=== PATIENT | female | born 1970 | race Caucasian/White ===

== ENCOUNTER 2016-09-25 09:43 | Emergency (ER) | payer OTHER ==
[~2016-09-25] VITALS: Ht 162.6 cm; Wt 74.8 kg
--- NOTE | 2016-09-25 10:06 | NUR ---
CALLED TO TRIAGE, NO ANSWER
--- NOTE | 2016-09-25 11:05 | NUR ---
CALLED TO TRIAGE, PT USING BATHROOM
[2016-09-25 11:48] VITALS: BP 139/75
== END 2016-09-25 12:03 | disposition home or self-care (01) ==
LOC: ER 09:44
DX: S80.812A Abrasion, left lower leg, initial encounter (principal); J45.909 Unspecified asthma, uncomplicated; F31.9 Bipolar disorder, unspecified; F17.200 Nicotine dependence, unspecified, uncomplicated; F20.9 Schizophrenia, unspecified; Z98.890 Other specified postprocedural states; X58.XXXA Exposure to other specified factors, initial encounter; Y93.89 Activity, other specified; Y92.89 Other specified places as the place of occurrence of the external cause; Y99.8 Other external cause status
CPT/HCPCS: A4606; Z7610

== ENCOUNTER 2016-09-25 19:36 | Emergency (ER) | payer OTHER ==
[~2016-09-25] VITALS: Ht 152.4 cm; Wt 74.4 kg
[2016-09-25 19:42] VITALS: BP 119/78
== END 2016-09-25 19:52 | disposition home or self-care (01) ==
LOC: ER 19:36
DX: Z00.8 Encounter for other general examination (principal); F20.9 Schizophrenia, unspecified; J45.909 Unspecified asthma, uncomplicated; F17.200 Nicotine dependence, unspecified, uncomplicated; F31.9 Bipolar disorder, unspecified
CPT/HCPCS: 99281; A4606; Z7610; Z7502

== ENCOUNTER 2016-10-22 11:16 | Emergency (ER) | payer OTHER ==
[~2016-10-22] VITALS: Ht 152.4 cm; Wt 68.0 kg
[2016-10-22 11:29] VITALS: BP 145/84
[2016-10-22] MEDS ORDERED: SILVER SULFADIAZINE CREAM 25 GM TUBE ONE (11:49)
[2016-10-22] MEDS ORDERED: IBUPROFEN 600 MG TABLET PO ONE ×2 (11:49→12:00)
[2016-10-22] MEDS ORDERED: TDAP [DIPH/PERTUSSIS/TET] 0.5 ML VIAL IM ONE ×2 (11:49→12:00)
[2016-10-22] MEDS ORDERED: SILVER SULFADIAZINE CREAM 25 GM TUBE TP ONE (12:00)
== END 2016-10-22 12:13 | disposition home or self-care (01) ==
LOC: ER 11:18
DX: T23.211A Burn of second degree of right thumb (nail), initial encounter (principal); J45.909 Unspecified asthma, uncomplicated; F31.9 Bipolar disorder, unspecified; F20.9 Schizophrenia, unspecified; F17.200 Nicotine dependence, unspecified, uncomplicated; X19.XXXA Contact with other heat and hot substances, initial encounter; Y93.89 Activity, other specified; Y92.89 Other specified places as the place of occurrence of the external cause; Y99.9 Unspecified external cause status
CPT/HCPCS: 16020; 90471; 90715; 99284; A4606; Z7610

== ENCOUNTER 2016-10-26 20:03 | Emergency (ER) | payer OTHER ==
[~2016-10-26] VITALS: Ht 152.4 cm; Wt 72.6 kg
[2016-10-26 20:08] VITALS: BP 140/82
[2016-10-26] MEDS ORDERED: ALBUTEROL FS 2.5 MG/3 ML VIAL.NEB ONE ×2 (20:16→21:02)
[2016-10-26] MEDS ORDERED: predniSONE 20 MG TABLET PO ONE (20:30)
[2016-10-26] MEDS ORDERED: ALBUTEROL FS 2.5 MG/3 ML VIAL.NEB NEB ONE ×2 (20:30→21:00)
[2016-10-26] MEDS ORDERED: predniSONE 20 MG TABLET ONE (21:11)
== END 2016-10-26 21:20 | disposition home or self-care (01) ==
LOC: ER 20:05
DX: J45.901 Unspecified asthma with (acute) exacerbation (principal); F31.9 Bipolar disorder, unspecified; F20.9 Schizophrenia, unspecified; F17.200 Nicotine dependence, unspecified, uncomplicated
CPT/HCPCS: 94640 ×2; 99284; A4606; J7512; Z7610

== ENCOUNTER 2016-10-31 16:51 | Emergency (ER) | payer OTHER ==
[2016-10-31] MEDS ORDERED: ALBUTEROL FS 2.5 MG/3 ML VIAL.NEB ONE (17:03)
[2016-10-31] MEDS ORDERED: IPRATROPIUM NEB FS 0.5 MG/2.5 ML AMPUL.NEB ONE (17:03)
[2016-10-31] MEDS ORDERED: predniSONE 20 MG TABLET ONE (17:14)
[2016-10-31] MEDS ORDERED: ALBUTEROL FS 2.5 MG/3 ML VIAL.NEB CONTNEB ONE (17:30)
[2016-10-31] MEDS ORDERED: predniSONE 20 MG TABLET PO ONE (17:30)
[2016-10-31] MEDS ORDERED: IPRATROPIUM NEB FS 0.5 MG/2.5 ML AMPUL.NEB NEB ONE (17:30)
[2016-10-31] MEDS ORDERED: DOXYCYCLINE HYCLATE (100 MG) 100 MG TABLET ONE (18:13)
[2016-10-31] MEDS ORDERED: BENZTROPINE MESYLATE (1 MG) 1 MG TABLET ONE (18:13)
[2016-10-31] MEDS ORDERED: BENZTROPINE MESYLATE (1 MG) 1 MG TABLET PO ONE (18:30)
[2016-10-31] MEDS ORDERED: DOXYCYCLINE HYCLATE (100 MG) 100 MG TABLET PO ONE (18:30)
== END 2016-10-31 18:47 | disposition home or self-care (01) ==
LOC: ER 16:59
DX: J45.901 Unspecified asthma with (acute) exacerbation (principal); F31.9 Bipolar disorder, unspecified; F20.9 Schizophrenia, unspecified; F17.200 Nicotine dependence, unspecified, uncomplicated
CPT/HCPCS: 71010-TC; A4606; Z7610

== ENCOUNTER 2016-11-26 10:37 | Emergency (ER) | payer OTHER ==
[~2016-11-26] VITALS: Ht 152.4 cm; Wt 66.2 kg
[2016-11-26 10:42] VITALS: BP 126/81
== END 2016-11-26 11:23 | disposition home or self-care (01) ==
LOC: ER 10:39
DX: J04.0 Acute laryngitis (principal); R21 Rash and other nonspecific skin eruption; J45.909 Unspecified asthma, uncomplicated; F31.9 Bipolar disorder, unspecified; F20.9 Schizophrenia, unspecified; F17.200 Nicotine dependence, unspecified, uncomplicated; Z98.890 Other specified postprocedural states
CPT/HCPCS: A4606; Z7502; Z7610

== ENCOUNTER 2016-12-11 14:16 | Emergency (ER) | payer OTHER ==
[~2016-12-11] VITALS: Ht 157.5 cm; Wt 65.8 kg
[2016-12-11 14:24] VITALS: BP 126/81
[2016-12-11] MEDS ORDERED: SILVER SULFADIAZINE CREAM 25 GM TUBE TP ONE (14:30)
[2016-12-11] MEDS ORDERED: SILVER SULFADIAZINE CREAM 25 GM TUBE ONE (14:31)
== END 2016-12-11 14:44 | disposition home or self-care (01) ==
LOC: ER 14:18
DX: T23.211A Burn of second degree of right thumb (nail), initial encounter (principal); F17.210 Nicotine dependence, cigarettes, uncomplicated; F20.9 Schizophrenia, unspecified; J45.909 Unspecified asthma, uncomplicated; X19.XXXA Contact with other heat and hot substances, initial encounter; Y93.89 Activity, other specified; Y92.89 Other specified places as the place of occurrence of the external cause; Y99.9 Unspecified external cause status
CPT/HCPCS: A4606; Z7610

== ENCOUNTER 2016-12-21 01:14 | Emergency (ER) | payer OTHER ==
[~2016-12-21] VITALS: Ht 152.4 cm; Wt 67.1 kg
[2016-12-21 01:19] VITALS: BP 118/71
[2016-12-21] MEDS ORDERED: ACETAMINOPHEN ES 500 MG TABLET ONE (01:32)
[2016-12-21] MEDS: ACETAMINOPHEN 325 MG TABLET PO ONE (01:41)
== END 2016-12-21 02:57 | disposition home or self-care (01) ==
LOC: ER 01:18
DX: S80.12XA Contusion of left lower leg, initial encounter (principal); J45.909 Unspecified asthma, uncomplicated; F17.200 Nicotine dependence, unspecified, uncomplicated; F20.9 Schizophrenia, unspecified; W22.8XXA Striking against or struck by other objects, initial encounter; Y93.89 Activity, other specified; Y92.89 Other specified places as the place of occurrence of the external cause; Y99.9 Unspecified external cause status
CPT/HCPCS: 73564; 99284; A4606; Z7610

== ENCOUNTER 2016-12-25 19:16 | Emergency (ER) | payer OTHER ==
[~2016-12-25] VITALS: Ht 154.9 cm; Wt 61.2 kg
[2016-12-25 19:37] VITALS: BP 99/56
[2016-12-25] MEDS ORDERED: BENZTROPINE MESYLATE (1 MG) 1 MG TABLET ONE (19:54)
[2016-12-25] MEDS ORDERED: BENZTROPINE MESYLATE (1 MG) 1 MG TABLET PO ONE (20:00)
== END 2016-12-25 20:35 | disposition home or self-care (01) ==
LOC: ER 19:19
DX: F41.9 Anxiety disorder, unspecified (principal); F17.210 Nicotine dependence, cigarettes, uncomplicated; J45.909 Unspecified asthma, uncomplicated; F20.9 Schizophrenia, unspecified
CPT/HCPCS: 99284; A4606; Z7610

== ENCOUNTER 2017-01-02 20:08 | Emergency (ER) | payer OTHER ==
[~2017-01-02] VITALS: Ht 172.7 cm; Wt 70.3 kg
[2017-01-02 20:08] VITALS: BP 108/70
== END 2017-01-02 23:53 | disposition home or self-care (01) ==
LOC: ER 20:11
DX: L73.9 Follicular disorder, unspecified (principal); J45.909 Unspecified asthma, uncomplicated; F17.200 Nicotine dependence, unspecified, uncomplicated; F20.9 Schizophrenia, unspecified
CPT/HCPCS: 99281; A4606; Z7610; Z7502

== ENCOUNTER 2017-01-20 12:32 | Emergency (ER) | payer OTHER ==
[~2017-01-20] VITALS: Ht 152.4 cm; Wt 52.2 kg
--- NOTE | 2017-01-20 12:33 | NUR ---
CALLED FOR TRIAGE, NO RESPONSE
[2017-01-20 12:47] VITALS: BP 122/68
--- NOTE | 2017-01-20 12:47 | NUR ---
CALLED FOR TRIAGE AND NO ANSWER
[2017-01-20] MEDS ORDERED: ACETAMINOPHEN 325 MG TABLET PO ONE (14:00)
[2017-01-20] MEDS ORDERED: ACETAMINOPHEN ES 500 MG TABLET ONE (14:01)
== END 2017-01-20 14:21 | disposition home or self-care (01) ==
LOC: ER 12:34
DX: S83.91XA Sprain of unspecified site of right knee, initial encounter (principal); F17.200 Nicotine dependence, unspecified, uncomplicated; F20.9 Schizophrenia, unspecified; J45.909 Unspecified asthma, uncomplicated; W22.8XXA Striking against or struck by other objects, initial encounter; Y93.89 Activity, other specified; Y92.89 Other specified places as the place of occurrence of the external cause; Y99.9 Unspecified external cause status
CPT/HCPCS: 73564; 99284; A4606; Z7610

== ENCOUNTER 2017-02-06 13:55 | Emergency (ER) | payer OTHER ==
--- NOTE | 2017-02-06 13:55 | NUR ---
called for triage, no answer
--- NOTE | 2017-02-06 14:29 | NUR ---
called for triage, no answer
--- NOTE | 2017-02-06 14:33 | NUR ---
CALLED PT TO TRIAGE ROOM x 3 3 TIME, PT IS NOT PHYSICALLY PRESENT IN ED WAITING AREA. WILL TRY GAIN LATER.
== END 2017-02-06 14:43 | disposition left against medical advice (07) ==
LOC: EDUNIT# 13:55 → ER 13:57
DX: Z53.21 Procedure and treatment not carried out due to patient leaving prior to being seen by health care provider (principal)

== ENCOUNTER 2017-03-01 20:14 | Emergency (ER) | payer OTHER ==
[~2017-03-01] VITALS: Ht 152.4 cm; Wt 81.6 kg
[2017-03-01 20:16] VITALS: BP 166/67
[2017-03-01] MEDS ORDERED: BACI/NEOM/POLY B OINT PKT 1 UDPKT PACKET TP ONE (20:30)
== END 2017-03-01 20:33 | disposition home or self-care (01) ==
LOC: ER 20:18
DX: S01.81XA Laceration without foreign body of other part of head, initial encounter (principal); S00.212A Abrasion of left eyelid and periocular area, initial encounter; J45.909 Unspecified asthma, uncomplicated; F17.200 Nicotine dependence, unspecified, uncomplicated; Z59.0 Homelessness; W01.0XXA Fall on same level from slipping, tripping and stumbling without subsequent striking against object, initial encounter; Y92.89 Other specified places as the place of occurrence of the external cause; Y93.89 Activity, other specified; Y99.8 Other external cause status; F20.9 Schizophrenia, unspecified
CPT/HCPCS: A4606; Z7502; Z7610

== ENCOUNTER 2017-11-22 15:32 | Emergency (ER) | payer OTHER ==
[~2017-11-22] VITALS: Ht 152.4 cm; Wt 47.6 kg
--- NOTE | 2017-11-22 15:55 | NUR ---
PATIENT IS NOT IN ED WAITING ROOM. UNABLE TO TRIAGE PATIENT. WILL TRY AGAIN LATER.
[2017-11-22 15:58] VITALS: BP 152/98
[2017-11-22 16:56] LABS: APPEARANCE,URINE SL CLOUDY (CLEAR); BILIRUBIN,URINE NEGATIVE (NEGATIVE); BLOOD, URINE NEGATIVE Ery/uL (NEGATIVE); COLOR,URINE YELLOW (YELLOW); KETONES,URINE TRACE (NEGATIVE); LEUKOCYTE ESTERASE ,URINE 1+ (NEGATIVE); NITRITE, URINE POSITIVE (NEGATIVE); PH,URINE 5.5 (5.0-8.0); PROTEIN,URINE TRACE mg/dl (NEGATIVE); UGLUCOSE NEGATIVE (NEGATIVE); UROBILINOGEN,URINE 0.2 EU/dL (0.2)
--- NOTE | 2017-11-22 17:02 | NUR ---
Patient eloped from facility. ER MARIAH vivar notified. Pt was accompnaied by a friend. pt ambulated with steady gait out of ER.
[2017-11-22 17:28] LABS: BACTERIA,URINE Many /HPF (None Seen); RBC,URINE 0-2 /HPF (0-2); SQUAMOUS EPITHELIAL CELL,UR Few /HPF (None Seen)
== END 2017-11-22 17:09 | disposition left against medical advice (07) ==
LOC: ER 15:33
DX: F20.9 Schizophrenia, unspecified (principal); N39.0 Urinary tract infection, site not specified; J45.909 Unspecified asthma, uncomplicated; F17.200 Nicotine dependence, unspecified, uncomplicated; Z32.02 Encounter for pregnancy test, result negative; K13.0 Diseases of lips; Z59.0 Homelessness; Z98.890 Other specified postprocedural states
CPT/HCPCS: 36415; 80074; 81000-TC; 84703-TC; 87086-TC; 87186-TC; 87491; 87591; A4606; Z7610

== ENCOUNTER 2018-01-11 17:06 | Emergency (ER) | payer OTHER ==
[~2018-01-11] VITALS: Ht 162.6 cm; Wt 64.0 kg
[2018-01-11 17:29] VITALS: BP 136/97
== END 2018-01-11 18:18 | disposition home or self-care (01) ==
LOC: ER 17:12
DX: Z13.89 Encounter for screening for other disorder (principal); H92.11 Otorrhea, right ear; J45.909 Unspecified asthma, uncomplicated; F20.9 Schizophrenia, unspecified; F17.200 Nicotine dependence, unspecified, uncomplicated; Z59.0 Homelessness
CPT/HCPCS: A4606; Z7502; Z7610

== ENCOUNTER 2018-03-23 12:03 | Emergency (ER) | payer OTHER ==
[~2018-03-23] VITALS: Ht 154.9 cm; Wt 45.4 kg
--- NOTE | 2018-03-23 12:05 | NUR ---
PATIENT IS NOT I NWAITING ROOM. UNABLE TO TRIAGE AT THIS TIME. WILL TRY AGAIN LATER.
--- NOTE | 2018-03-23 12:15 | NUR ---
PATIENT IS STILL NOT IN WAITING ROOM. UNABLE TO TRIAGE AT THIS TIME. WILL TRY AGAIN LATER.
[2018-03-23 12:29] VITALS: BP 131/72
[2018-03-23] MEDS ORDERED: HYDROCODONE/APAP 5/325MG 1 EACH TABLET ONE (12:44)
[2018-03-23] MEDS ORDERED: ONDANSETRON 4 MG TAB.RAPDIS ONE (12:44)
--- NOTE | 2018-03-23 12:46 | NUR ---
RADIOLOGY AT BEDSIDE FOR L HAND/FOREARM XRAY.
[2018-03-23] MEDS ORDERED: HYDROCODONE/APAP 5/325MG 1 EACH TABLET PO ONE (13:00)
[2018-03-23] MEDS ORDERED: ONDANSETRON 4 MG TAB.RAPDIS SL ONE (13:00)
--- NOTE | 2018-03-23 14:03 | NUR ---
PT D/C TO AND ADVISED TO SEE ORTHO. PROVIDED W/ XRAY COPIES. STABLE CONDITION.
== END 2018-03-23 14:05 | disposition home or self-care (01) ==
LOC: ER 12:04
DX: S52.292A Other fracture of shaft of left ulna, initial encounter for closed fracture (principal); F20.9 Schizophrenia, unspecified; J45.909 Unspecified asthma, uncomplicated; F17.200 Nicotine dependence, unspecified, uncomplicated; Z98.890 Other specified postprocedural states; Z59.0 Homelessness; V03.90XA Pedestrian on foot injured in collision with car, pick-up truck or van, unspecified whether traffic or nontraffic accident, initial encounter; Y93.89 Activity, other specified; Y92.413 State road as the place of occurrence of the external cause; Y99.8 Other external cause status
CPT/HCPCS: 73090-TC; 73130-TC; A4606; Q0162; Z7610

== ENCOUNTER 2018-06-27 21:09 | Emergency (ER) | payer OTHER ==
[~2018-06-27] VITALS: Ht 152.4 cm; Wt 54.4 kg
[2018-06-27 21:16] VITALS: BP 144/115
--- NOTE | 2018-06-27 21:22 | NUR ---
PATIENT WANTED TO LEAVE BECAUSE "SOMEONE LOOKED LIKE A DOCTOR"
== END 2018-06-27 21:22 | disposition left against medical advice (07) ==
LOC: ER 21:17
DX: Z53.21 Procedure and treatment not carried out due to patient leaving prior to being seen by health care provider (principal); J45.909 Unspecified asthma, uncomplicated; F20.9 Schizophrenia, unspecified; Z98.890 Other specified postprocedural states
CPT/HCPCS: A4606; Z7610

== ENCOUNTER 2018-08-08 11:47 | Emergency (ER) | payer OTHER ==
[~2018-08-08] VITALS: Ht 152.4 cm; Wt 54.4 kg
[2018-08-08 11:47] VITALS: BP 159/88
== END 2018-08-08 13:37 | disposition home or self-care (01) ==
LOC: ER 12:57
DX: L01.09 Other impetigo (principal); H60.542 Acute eczematoid otitis externa, left ear; F20.9 Schizophrenia, unspecified; J45.909 Unspecified asthma, uncomplicated; F10.10 Alcohol abuse, uncomplicated; F17.200 Nicotine dependence, unspecified, uncomplicated; Y90.9 Presence of alcohol in blood, level not specified; Z98.890 Other specified postprocedural states
CPT/HCPCS: 99283; A4606; Z7610

== ENCOUNTER 2018-09-16 19:38 | Emergency (ER) | payer OTHER ==
[~2018-09-16] VITALS: Ht 152.4 cm; Wt 47.6 kg
[2018-09-16 19:43] VITALS: BP 130/79
== END 2018-09-16 20:02 | disposition home or self-care (01) ==
LOC: ER 19:38
DX: H61.21 Impacted cerumen, right ear (principal); J45.909 Unspecified asthma, uncomplicated; F20.9 Schizophrenia, unspecified; F10.10 Alcohol abuse, uncomplicated; F17.200 Nicotine dependence, unspecified, uncomplicated; Z98.890 Other specified postprocedural states

== ENCOUNTER 2018-10-19 10:17 | Emergency (ER) | payer OTHER ==
[~2018-10-19] VITALS: Ht 152.4 cm; Wt 54.4 kg
[2018-10-19 10:55] VITALS: BP 162/98
--- NOTE | 2018-10-19 10:55 | NUR ---
Patient left without being seen by ER Physician
== END 2018-10-19 10:55 | disposition left against medical advice (07) ==
LOC: ER 10:19
DX: Z53.21 Procedure and treatment not carried out due to patient leaving prior to being seen by health care provider (principal)
CPT/HCPCS: Z7502

== ENCOUNTER 2018-10-28 16:01 | Emergency (ER) | payer OTHER ==
[~2018-10-28] VITALS: Ht 152.4 cm; Wt 47.6 kg
--- NOTE | 2018-10-28 16:23 | NUR ---
DIRECTOR OF PRODUCT MANAGEMENT ARE AT THE BEDSIDE SPEAKING TO THE PT.
--- NOTE | 2018-10-28 16:29 | NUR ---
EFFIE was informed by KENNA Bowen that pt. is homeless. Pt. is a 47 year old female who came to [facility] ED complaining of eye pain. EFFIE met with pt. bedside. Pt. is alert and oriented x 4. Pt. appears disheveled and unkempt. Pt. states she is homeless and has been for sometime. Pt. is unable to focus on a topic and keeps going from topic to topic.SW had to redirect pt. several times. EFFIE offered pt. winter [facility] placement and resources. However pt declined stating, " I don't do shelters". " I am looking for an apartment." Pt. receives $1000 in SSI per month. EFFIE again asked pt. if she would like resources or TAP card. Pt. refused both. Homeless patient Waiver form was signed by pt. and placed in pt's chart. EFFIE updated CHERISE Villela and KENNA Bowen regarding pt's discharge plan and declining resources.
[2018-10-28 16:52] VITALS: BP 130/78
== END 2018-10-28 16:55 | disposition home or self-care (01) ==
LOC: ER 16:04
DX: H10.33 Unspecified acute conjunctivitis, bilateral (principal); H61.21 Impacted cerumen, right ear; J45.909 Unspecified asthma, uncomplicated; F32.9 Major depressive disorder, single episode, unspecified; F17.200 Nicotine dependence, unspecified, uncomplicated; F20.9 Schizophrenia, unspecified; Z98.890 Other specified postprocedural states
CPT/HCPCS: 99283; A4606

== ENCOUNTER 2018-11-25 20:06 | Emergency (ER) | payer OTHER ==
[~2018-11-25] VITALS: Ht 162.6 cm; Wt 54.4 kg
[2018-11-25 21:07] VITALS: BP 114/77
== END 2018-11-25 21:28 | disposition home or self-care (01) ==
LOC: ER 20:10
DX: H10.89 Other conjunctivitis (principal); J45.909 Unspecified asthma, uncomplicated; F32.9 Major depressive disorder, single episode, unspecified; F20.9 Schizophrenia, unspecified; F10.10 Alcohol abuse, uncomplicated; F17.200 Nicotine dependence, unspecified, uncomplicated; Y90.9 Presence of alcohol in blood, level not specified; Z98.890 Other specified postprocedural states
CPT/HCPCS: 99283; A4606

== ENCOUNTER 2018-12-07 19:12 | Emergency (ER) | payer OTHER ==
[~2018-12-07] VITALS: Ht 152.4 cm; Wt 56.7 kg
[2018-12-07 19:25] VITALS: BP 130/62
--- NOTE | 2018-12-07 19:51 | NUR ---
Patient given written and verbal discharge instructions. Patient verbalizes understanding of instructions. Patient is ambulatory with steady gait. Refuses offer of penitentiary placement. Patient given list of available shelters in surrounding area.
== END 2018-12-07 19:52 | disposition home or self-care (01) ==
LOC: ER 19:13
DX: H04.129 Dry eye syndrome of unspecified lacrimal gland (principal); J45.909 Unspecified asthma, uncomplicated; F32.9 Major depressive disorder, single episode, unspecified; F20.9 Schizophrenia, unspecified; F10.10 Alcohol abuse, uncomplicated; F17.200 Nicotine dependence, unspecified, uncomplicated; Y90.9 Presence of alcohol in blood, level not specified; Z59.0 Homelessness; Z98.890 Other specified postprocedural states

== ENCOUNTER 2018-12-15 22:04 | Emergency (ER) | payer OTHER ==
[~2018-12-15] VITALS: Ht 152.4 cm; Wt 54.4 kg
--- NOTE | 2018-12-15 22:17 | NUR ---
CALLED NO ANSWER IN WAITING ROOM.
[2018-12-15 22:43] VITALS: BP 147/91
[2018-12-15] MEDS ORDERED: ONDANSETRON 4 MG TAB.RAPDIS ONE (23:47)
[2018-12-16] MEDS ORDERED: ONDANSETRON 4 MG TAB.RAPDIS PO ONE
== END 2018-12-16 00:11 | disposition home or self-care (01) ==
LOC: ER 22:06
DX: H10.33 Unspecified acute conjunctivitis, bilateral (principal); H60.93 Unspecified otitis externa, bilateral; R11.0 Nausea; F20.9 Schizophrenia, unspecified; J45.909 Unspecified asthma, uncomplicated; F32.9 Major depressive disorder, single episode, unspecified; F17.200 Nicotine dependence, unspecified, uncomplicated; Z98.890 Other specified postprocedural states
CPT/HCPCS: 99283; Q0162

== ENCOUNTER 2019-05-11 14:54 | Emergency (ER) | payer OTHER ==
[~2019-05-11] VITALS: Ht 152.4 cm; Wt 57.2 kg
[2019-05-11 15:06] VITALS: BP 135/105
[2019-05-11] MEDS ORDERED: FLUORESCEIN SODIUM OPHTH 1 EA STRIP ONE (15:39)
== END 2019-05-11 15:49 | disposition home or self-care (01) ==
LOC: ER 14:59
DX: R10.13 Epigastric pain (principal); H10.89 Other conjunctivitis; J45.909 Unspecified asthma, uncomplicated; F32.9 Major depressive disorder, single episode, unspecified; F20.9 Schizophrenia, unspecified; F10.10 Alcohol abuse, uncomplicated; F17.200 Nicotine dependence, unspecified, uncomplicated; Y90.9 Presence of alcohol in blood, level not specified; Z98.890 Other specified postprocedural states

== ENCOUNTER 2019-09-07 07:51 | Emergency (ER) | payer OTHER ==
[~2019-09-07] VITALS: Ht 152.4 cm; Wt 49.9 kg
[2019-09-07 07:59] VITALS: BP 135/81
--- NOTE | 2019-09-07 08:44 | NUR ---
Patient discharged to home in stable condition. Written and verbal after care instructions given. Patient verbalizes understanding of instruction.
== END 2019-09-07 08:44 | disposition home or self-care (01) ==
LOC: ER 07:57
DX: H61.23 Impacted cerumen, bilateral (principal); J45.909 Unspecified asthma, uncomplicated; F10.10 Alcohol abuse, uncomplicated; F17.200 Nicotine dependence, unspecified, uncomplicated; Y90.9 Presence of alcohol in blood, level not specified; Z98.890 Other specified postprocedural states

== ENCOUNTER 2019-12-01 14:24 | Emergency (ER) | payer OTHER ==
[~2019-12-01] VITALS: Ht 152.4 cm; Wt 54.4 kg
--- NOTE | 2019-12-01 14:32 | NUR ---
called to triage,no answer
--- NOTE | 2019-12-01 14:35 | NUR ---
PT CALLED TO TRIAGE, PT NOT IN WAITING ROOM
[2019-12-01 14:51] VITALS: BP 142/110
== END 2019-12-01 15:47 | disposition home or self-care (01) ==
LOC: ER 14:28
DX: L03.211 Cellulitis of face (principal); H61.21 Impacted cerumen, right ear; J45.909 Unspecified asthma, uncomplicated; F32.9 Major depressive disorder, single episode, unspecified; F17.200 Nicotine dependence, unspecified, uncomplicated; F20.9 Schizophrenia, unspecified; Z98.890 Other specified postprocedural states

== ENCOUNTER 2019-12-02 16:30 | Emergency (ER) | payer OTHER ==
[~2019-12-02] VITALS: Ht 152.4 cm; Wt 59.9 kg
[2019-12-02 16:35] VITALS: BP 149/115
--- NOTE | 2019-12-02 16:40 | NUR ---
DR JARAMILLO AT BEDSIDE FOR EVAL.
--- NOTE | 2019-12-02 17:03 | NUR ---
PT PROVIDED W/ WOUND CARE.
--- NOTE | 2019-12-02 17:31 | NUR ---
PT REFUSED TO SIGN HOMELESS WAIVER FORM. WOUND CARE PROVIDED. DISCHARGE IN STABLE CONDITION.
== END 2019-12-02 17:33 | disposition home or self-care (01) ==
LOC: ER 16:34
DX: L03.211 Cellulitis of face (principal); J45.909 Unspecified asthma, uncomplicated; Z98.890 Other specified postprocedural states

== ENCOUNTER 2019-12-09 14:16 | Emergency (ER) | payer OTHER ==
[~2019-12-09] VITALS: Ht 152.4 cm; Wt 58.1 kg
[2019-12-09 14:32] VITALS: BP 156/93
== END 2019-12-09 14:57 | disposition home or self-care (01) ==
LOC: ER 14:20
DX: H60.13 Cellulitis of external ear, bilateral (principal); J45.909 Unspecified asthma, uncomplicated; Z76.0 Encounter for issue of repeat prescription; Z59.0 Homelessness; Z98.890 Other specified postprocedural states

== ENCOUNTER 2020-01-05 16:45 | Emergency (ER) | payer OTHER ==
[~2020-01-05] VITALS: Ht 152.4 cm; Wt 52.2 kg
[2020-01-05 17:02] VITALS: BP 108/57
--- NOTE | 2020-01-05 17:23 | NUR ---
Patient given written and verbal discharge instructions. Patient verbalizes understanding of instructions. Patient is ambulatory with steady gait. Refuses offer of correction placement. Patient given list of available shelters in surrounding area.
== END 2020-01-05 17:24 | disposition home or self-care (01) ==
LOC: ER 16:47
DX: H10.9 Unspecified conjunctivitis (principal); H60.92 Unspecified otitis externa, left ear; J45.909 Unspecified asthma, uncomplicated; Z98.890 Other specified postprocedural states; Z59.0 Homelessness

== ENCOUNTER 2020-02-04 23:40 | Emergency (ER) | payer OTHER ==
[~2020-02-04] VITALS: Ht 152.4 cm; Wt 49.9 kg
[2020-02-04 23:55] VITALS: BP 137/84
== END 2020-02-05 00:41 | disposition home or self-care (01) ==
LOC: ER 23:40
DX: H92.03 Otalgia, bilateral (principal); J45.909 Unspecified asthma, uncomplicated; F32.9 Major depressive disorder, single episode, unspecified; F17.200 Nicotine dependence, unspecified, uncomplicated; Z98.890 Other specified postprocedural states; Z59.0 Homelessness

== ENCOUNTER 2020-05-05 21:02 | Emergency (ER) | payer OTHER ==
[~2020-05-05] VITALS: Ht 152.4 cm; Wt 54.4 kg
[2020-05-05 21:05] VITALS: BP 148/98
--- NOTE | 2020-05-05 21:10 | NUR ---
PT CAME TO THE ED C/O MIDEPIGASTRIC ABD PAIN X 1 WEEK. +NAUSEA. PT AAOX4, VSS, AMBULATORY, RESPIRATIONS EVEN AND UNLABORED ON RA W/ NAD NOTED. PT CONNECTED TO THE MONITOR AND POX
[2020-05-05] MEDS ORDERED: LIDOCAINE VISCOUS 2% UD 15 ML UDC ONE (21:28)
[2020-05-05] MEDS ORDERED: MAG HYDROX/AL HYDROX/SIMETH 30 ML UDC ONE (21:28)
[2020-05-05] MEDS ORDERED: MAG HYDROX/AL HYDROX/SIMETH 30 ML UDC PO ONE (21:30)
[2020-05-05] MEDS ORDERED: LIDOCAINE VISCOUS 2% UD 15 ML UDC MM ONE (21:30)
--- NOTE | 2020-05-05 21:39 | NUR ---
Patient given written and verbal discharge instructions. Patient verbalizes understanding of instructions. Patient is ambulatory with steady gait. Refuses offer of halfway placement. Patient given list of available shelters in surrounding area.
--- NOTE | 2020-05-05 21:39 | NUR ---
PATIENT PROVIDED WITH PRESCRIPTIONS (PEPCID 20MG)
== END 2020-05-05 21:42 | disposition home or self-care (01) ==
LOC: ER 21:04
DX: K29.00 Acute gastritis without bleeding (principal); K21.9 Gastro-esophageal reflux disease without esophagitis; J45.909 Unspecified asthma, uncomplicated; F32.9 Major depressive disorder, single episode, unspecified; F20.9 Schizophrenia, unspecified; F17.200 Nicotine dependence, unspecified, uncomplicated; Z98.890 Other specified postprocedural states; Z59.0 Homelessness

== ENCOUNTER 2020-09-18 23:56 | Emergency (ER) | payer OTHER ==
[~2020-09-18] VITALS: Ht 152.4 cm; Wt 63.5 kg
[2020-09-19 00:33] VITALS: BP 157/90
--- NOTE | 2020-09-19 01:30 | NUR ---
PT REFUSED EAR IRRIGTATION. RISK VS BENEFITS EXPLAINED TO THE PT
== END 2020-09-19 01:45 | disposition home or self-care (01) ==
LOC: ER 23:59
DX: H61.23 Impacted cerumen, bilateral (principal); J45.909 Unspecified asthma, uncomplicated; F32.9 Major depressive disorder, single episode, unspecified; F20.9 Schizophrenia, unspecified; Z98.890 Other specified postprocedural states; Z59.0 Homelessness

== ENCOUNTER 2020-09-28 17:40 | Emergency (ER) | payer OTHER ==
[~2020-09-28] VITALS: Ht 152.4 cm; Wt 63.5 kg
[2020-09-28 18:01] VITALS: BP 142/78
--- NOTE | 2020-09-28 18:29 | NUR ---
Patient discharged to home in stable condition. Written and verbal after care instructions given. Patient verbalizes understanding of instruction.
== END 2020-09-28 18:29 | disposition home or self-care (01) ==
LOC: ER 17:42
DX: H60.92 Unspecified otitis externa, left ear (principal); J45.909 Unspecified asthma, uncomplicated; F20.9 Schizophrenia, unspecified; F32.9 Major depressive disorder, single episode, unspecified; F17.200 Nicotine dependence, unspecified, uncomplicated; Z76.0 Encounter for issue of repeat prescription; Z98.890 Other specified postprocedural states; Z60.2 Problems related to living alone

== ENCOUNTER 2020-10-19 15:39 | Emergency (ER) | payer OTHER ==
[~2020-10-19] VITALS: Ht 152.4 cm; Wt 56.7 kg
[2020-10-19 15:48] VITALS: BP 159/98
--- NOTE | 2020-10-19 15:53 | NUR ---
SEEN AND EXAMINED BY .
--- NOTE | 2020-10-19 16:10 | NUR ---
Patient given written and verbal discharge instructions. Patient verbalizes understanding of instructions. Patient is ambulatory with steady gait. Refuses offer of penitentiary placement. Patient given list of available shelters in surrounding area. Food provided to patient.
== END 2020-10-19 16:10 | disposition home or self-care (01) ==
LOC: ER 15:51
DX: T16.2XXD Foreign body in left ear, subsequent encounter (principal); J45.909 Unspecified asthma, uncomplicated; F32.9 Major depressive disorder, single episode, unspecified; F20.9 Schizophrenia, unspecified; Z98.890 Other specified postprocedural states; Z60.2 Problems related to living alone; X58.XXXD Exposure to other specified factors, subsequent encounter

== ENCOUNTER 2020-10-25 16:54 | Emergency (ER) | payer OTHER ==
[~2020-10-25] VITALS: Ht 152.4 cm; Wt 65.8 kg
[2020-10-25 17:32] VITALS: BP 136/82
[2020-10-25] MEDS ORDERED: CIPR7.5D LEFT EAR (17:46)
== END 2020-10-25 18:08 | disposition home or self-care (01) ==
LOC: ER 16:58
DX: H60.93 Unspecified otitis externa, bilateral (principal); J45.909 Unspecified asthma, uncomplicated; F32.9 Major depressive disorder, single episode, unspecified; F20.9 Schizophrenia, unspecified; F10.10 Alcohol abuse, uncomplicated; F17.200 Nicotine dependence, unspecified, uncomplicated; Y90.9 Presence of alcohol in blood, level not specified; Z98.890 Other specified postprocedural states; Z60.2 Problems related to living alone; Z79.899 Other long term (current) drug therapy

== ENCOUNTER 2020-11-30 20:12 | Emergency (ER) | payer OTHER ==
[~2020-11-30] VITALS: Ht 152.4 cm; Wt 54.4 kg
[~2020-11-30 20:12] MED LIST: CIPR7.5D LEFT EAR
[2020-11-30 20:20] VITALS: BP 167/87
[2020-11-30] MEDS ORDERED: ALBU6.7H9 INH (20:44)
[2020-11-30] MEDS ORDERED: ACET325T53 MC (20:44)
== END 2020-11-30 20:53 | disposition home or self-care (01) ==
LOC: ER 20:14
DX: H92.02 Otalgia, left ear (principal); J45.909 Unspecified asthma, uncomplicated; F32.9 Major depressive disorder, single episode, unspecified; F20.9 Schizophrenia, unspecified; F10.10 Alcohol abuse, uncomplicated; F17.200 Nicotine dependence, unspecified, uncomplicated; Y90.9 Presence of alcohol in blood, level not specified; Z76.0 Encounter for issue of repeat prescription; Z60.2 Problems related to living alone; Z79.899 Other long term (current) drug therapy; Z98.890 Other specified postprocedural states

== ENCOUNTER 2020-12-07 06:17 | Emergency (ER) | payer OTHER ==
[~2020-12-07] VITALS: Ht 152.4 cm; Wt 54.4 kg
[~2020-12-07 06:17] MED LIST changes: +ACET325T53 MC; +ALBU6.7H9 INH
[2020-12-07 06:34] VITALS: BP 158/75
[2020-12-07] MEDS ORDERED: NEOM10DR11 OT (06:46)
== END 2020-12-07 06:59 | disposition home or self-care (01) ==
LOC: ER 06:18
DX: H92.03 Otalgia, bilateral (principal); G89.29 Other chronic pain; J45.909 Unspecified asthma, uncomplicated; F32.9 Major depressive disorder, single episode, unspecified; F20.9 Schizophrenia, unspecified; Z98.890 Other specified postprocedural states; Z60.2 Problems related to living alone; Z79.899 Other long term (current) drug therapy

== ENCOUNTER 2021-05-13 08:22 | Emergency (ER) | payer OTHER ==
[~2021-05-13] VITALS: Ht 152.4 cm; Wt 68.0 kg
[~2021-05-13 08:22] MED LIST changes: -CIPR7.5D LEFT EAR; +CIPR7.5D9 LEFT EAR; +NEOM10DR11 OT
--- NOTE | 2021-05-13 08:43 | NUR ---
CALLED IN ED WAITING ROOM. NO RESPONSE
[2021-05-13 09:07] VITALS: BP 132/84
[2021-05-13] MEDS ORDERED: NEOM10DR11 OT (09:45)
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
== END 2021-05-13 10:19 | disposition home or self-care (01) ==
LOC: ER 08:24
DX: H60.93 Unspecified otitis externa, bilateral (principal); H92.03 Otalgia, bilateral; G89.29 Other chronic pain; J45.909 Unspecified asthma, uncomplicated; F32.9 Major depressive disorder, single episode, unspecified; F20.9 Schizophrenia, unspecified; F10.10 Alcohol abuse, uncomplicated; F17.200 Nicotine dependence, unspecified, uncomplicated; Y90.9 Presence of alcohol in blood, level not specified; Z98.890 Other specified postprocedural states; Z60.2 Problems related to living alone; Z79.899 Other long term (current) drug therapy

== ENCOUNTER 2021-05-16 10:45 | Emergency (ER) | payer OTHER ==
[~2021-05-16] VITALS: Ht 152.4 cm; Wt 59.9 kg
[2021-05-16] MEDS ORDERED: NEOM10DR11 OT (10:53)
[2021-05-16 11:01] VITALS: BP 148/95
== END 2021-05-16 11:03 | disposition home or self-care (01) ==
LOC: ER 10:48
DX: H92.03 Otalgia, bilateral (principal); G89.29 Other chronic pain; J45.909 Unspecified asthma, uncomplicated; F32.9 Major depressive disorder, single episode, unspecified; F20.9 Schizophrenia, unspecified; Z98.890 Other specified postprocedural states; Z60.2 Problems related to living alone; Z79.899 Other long term (current) drug therapy

== ENCOUNTER 2021-06-02 09:11 | Emergency (ER) | payer OTHER ==
[~2021-06-02] VITALS: Ht 157.5 cm; Wt 60.3 kg
[2021-06-02 09:18] VITALS: BP 126/72
--- NOTE | 2021-06-02 09:20 | NUR ---
to er bed 2, c/o bilateral ear ache, aaox4, breathing even and non labored
[2021-06-02] MEDS ORDERED: CARB15DR12 EACH EAR (09:42)
== END 2021-06-02 09:54 | disposition home or self-care (01) ==
LOC: ER 09:14
DX: H61.23 Impacted cerumen, bilateral (principal); H92.03 Otalgia, bilateral; G89.29 Other chronic pain; J45.909 Unspecified asthma, uncomplicated; F32.9 Major depressive disorder, single episode, unspecified; F20.9 Schizophrenia, unspecified; F10.10 Alcohol abuse, uncomplicated; F17.200 Nicotine dependence, unspecified, uncomplicated; Y90.9 Presence of alcohol in blood, level not specified; Z98.890 Other specified postprocedural states; Z79.899 Other long term (current) drug therapy

== ENCOUNTER 2021-07-28 18:28 | Emergency (ER) | payer OTHER ==
[~2021-07-28 18:28] MED LIST changes: +CARB15DR12 EACH EAR
== END 2021-07-28 22:00 | disposition home or self-care (01) ==
LOC: ER 18:31
DX: Z53.21 Procedure and treatment not carried out due to patient leaving prior to being seen by health care provider (principal)

== ENCOUNTER 2021-08-01 08:47 | Emergency (ER) | payer OTHER ==
[~2021-08-01] VITALS: Ht 157.5 cm; Wt 60.3 kg
--- NOTE | 2021-08-01 08:47 | NUR ---
BIBS C/ O PERSISTENT RIGHT EAR PAIN PT WANTS STRONGER ABX. PT WAS SENT TO BED 3.
[2021-08-01 08:55] VITALS: BP 142/74
[2021-08-01] MEDS ORDERED: NEOM10DR11 OT (09:00)
[2021-08-01] MEDS ORDERED: AMOX250S68 PO (09:01)
--- NOTE | 2021-08-01 09:07 | NUR ---
Patient discharged to home in stable condition. Patient was given new antibiotic. Written and verbal after care instructions given. Patient verbalizes understanding of instruction.
== END 2021-08-01 09:07 | disposition home or self-care (01) ==
LOC: ER 08:48
DX: G89.29 Other chronic pain (principal); H92.01 Otalgia, right ear; F20.9 Schizophrenia, unspecified; J45.909 Unspecified asthma, uncomplicated; F32.9 Major depressive disorder, single episode, unspecified; Z98.890 Other specified postprocedural states

== ENCOUNTER 2021-09-05 20:56 | Emergency (ER) | payer OTHER ==
[~2021-09-05 20:56] MED LIST changes: +AMOX250S68 PO
--- NOTE | 2021-09-05 22:30 | NUR ---
CALLED TO TRIAGE, NOT IN WAITING ROOM
--- NOTE | 2021-09-05 22:44 | NUR ---
called fro triage no answer
== END 2021-09-05 23:46 | disposition left against medical advice (07) ==
LOC: ER 20:59
DX: Z53.21 Procedure and treatment not carried out due to patient leaving prior to being seen by health care provider (principal)

== ENCOUNTER 2021-09-19 16:24 | Emergency (ER) | payer OTHER ==
[~2021-09-19] VITALS: Ht 152.4 cm; Wt 54.4 kg
[2021-09-19 17:37] VITALS: BP 135/84
[2021-09-19] MEDS ORDERED: OFLO5DRO5 EACH EAR (18:00)
== END 2021-09-19 18:06 | disposition home or self-care (01) ==
LOC: ER 16:28
DX: H60.91 Unspecified otitis externa, right ear (principal); J45.909 Unspecified asthma, uncomplicated; F32.9 Major depressive disorder, single episode, unspecified; F20.9 Schizophrenia, unspecified; F17.200 Nicotine dependence, unspecified, uncomplicated; Z98.890 Other specified postprocedural states; Z79.899 Other long term (current) drug therapy

== ENCOUNTER 2021-12-25 16:14 | Emergency (ER) | payer OTHER ==
[~2021-12-25] VITALS: Ht 152.4 cm; Wt 54.4 kg
[~2021-12-25 16:14] MED LIST changes: +OFLO5DRO5 EACH EAR
[2021-12-25 16:20] VITALS: BP 110/52
--- NOTE | 2021-12-25 16:47 | NUR ---
SEEN AND EXAMINED BY .
[2021-12-25] MEDS ORDERED: BACI3.5O23 LEFTEYE (16:50)
--- NOTE | 2021-12-25 16:55 | NUR ---
Patient discharged to home in stable condition. Written and verbal after care instructions given. Patient verbalizes understanding of instruction.
== END 2021-12-25 16:56 | disposition home or self-care (01) ==
LOC: ER 16:16
DX: L55.9 Sunburn, unspecified (principal); J45.909 Unspecified asthma, uncomplicated; F32.A Depression, unspecified; F20.9 Schizophrenia, unspecified; F17.200 Nicotine dependence, unspecified, uncomplicated; Z79.51 Long term (current) use of inhaled steroids; Z79.1 Long term (current) use of non-steroidal anti-inflammatories (NSAID); Z79.899 Other long term (current) drug therapy

== ENCOUNTER 2022-04-10 12:18 | Emergency (ER) | payer OTHER ==
[~2022-04-10] VITALS: Ht 152.4 cm; Wt 54.4 kg
[~2022-04-10 12:18] MED LIST changes: +BACI3.5O23 LEFTEYE
[2022-04-10 12:34] VITALS: BP 149/73
--- NOTE | 2022-04-10 12:35 | NUR ---
BIBS W/ C/O BILATERAL EYE PAIN/SWELLING/REDNESS/DRAINAGE x2 DAYS. PT A/O X4, AMBULATORY. TO ER BED 19.
--- NOTE | 2022-04-10 12:40 | NUR ---
DR WARD W/ PT FOR [place].
[2022-04-10] MEDS ORDERED: ERYT3.5O9 EACHEYE (12:51)
[2022-04-10] MEDS ORDERED: CIPR5DRO EACHEYE (12:51)
--- NOTE | 2022-04-10 13:05 | NUR ---
Patient discharged to home in stable condition. Written and verbal after care instructions given. Patient verbalizes understanding of instruction.
== END 2022-04-10 13:08 | disposition home or self-care (01) ==
LOC: ER 12:29
DX: H10.9 Unspecified conjunctivitis (principal); J45.909 Unspecified asthma, uncomplicated; F32.A Depression, unspecified; F20.9 Schizophrenia, unspecified; F17.200 Nicotine dependence, unspecified, uncomplicated; Z98.890 Other specified postprocedural states; Z59.00 Homelessness unspecified; Z79.899 Other long term (current) drug therapy

== ENCOUNTER 2022-08-20 19:54 | Emergency (ER) | payer OTHER ==
[~2022-08-20] VITALS: Ht 152.4 cm; Wt 67.6 kg
[~2022-08-20 19:54] MED LIST changes: +CIPR5DRO EACHEYE; +ERYT3.5O9 EACHEYE
[2022-08-20 21:57] VITALS: BP 135/71
[2022-08-20] MEDS ORDERED: BACITRACIN ZINC OINT PACKET 1 EA PACKET TP ONE ×2 (22:22→22:30)
[2022-08-20] MEDS ORDERED: CEPHALEXIN MONOHYDRATE 500 MG CAPSULE PO ONE ×2 (22:22→22:30)
[2022-08-20] MEDS ORDERED: CEPH500C2 PO (22:24)
[2022-08-20] MEDS ORDERED: BACI30OI9 TP (22:24)
== END 2022-08-20 22:45 | disposition home or self-care (01) ==
LOC: ER 20:08
DX: L02.31 Cutaneous abscess of buttock (principal); J45.909 Unspecified asthma, uncomplicated; F32.A Depression, unspecified; F20.9 Schizophrenia, unspecified; F17.200 Nicotine dependence, unspecified, uncomplicated; Z79.899 Other long term (current) drug therapy

== ENCOUNTER → 2022-09-10 | Emergency (ER) | payer MEDICAID, OTHER ==
[~2022-09-10] VITALS: Ht 152.4 cm; Wt 65.8 kg
[~2022-09-10] MED LIST changes: +BACI30OI9 TP; +CEPH500C2 PO; +CEPH500T PO; +CEPHALEXIN MONOHYDRATE 500 MG CAPSULE PO ONE
--- NOTE | 2022-09-10 16:40 | NUR ---
bibself c/o left hip skin swelling and pain.
--- NOTE | 2022-09-10 17:00 | NUR ---
at bed side for eval ,
--- NOTE | 2022-09-10 17:10 | NUR ---
Patient discharged to home in stable condition. Written and verbal after care instructions given. Patient verbalizes understanding of instruction.
[2022-09-10 17:24] VITALS: BP 135/64
== END | disposition home or self-care (01) ==
LOC: ER 15:38
DX: L03.317 Cellulitis of buttock (principal); F17.200 Nicotine dependence, unspecified, uncomplicated; Z79.899 Other long term (current) drug therapy

== ENCOUNTER 2022-12-20 12:23 | Emergency (ER) | payer MEDICAID ==
[~2022-12-20] VITALS: Ht 154.9 cm; Wt 56.2 kg
[~2022-12-20 12:23] MED LIST changes: -CEPHALEXIN MONOHYDRATE 500 MG CAPSULE PO ONE
--- NOTE | 2022-12-20 12:35 | NUR ---
REQUESTING ANTIBIOTICS FOR "ABSCESS OF RIGHT THIGH".
[2022-12-20] MEDS ORDERED: LIDOCAINE 1%-EPI 1:100,000 20 ML VIAL ONE (12:45)
[2022-12-20] MEDS ORDERED: LIDOCAINE 1% INJ 50 ML MDV IJ ONE ×2 (12:46→13:00)
[2022-12-20] MEDS ORDERED: BACI/NEOM/POLY B OINT PKT 1 UDPKT PACKET TP ONE (13:00)
--- NOTE | 2022-12-20 13:15 | NUR ---
IND done at bed side by PA
[2022-12-20] MEDS ORDERED: CEPH500T PO (13:32)
[2022-12-20] MEDS ORDERED: IBUP-1955 PO (13:32)
[2022-12-20] MEDS ORDERED: SULF1TAB47 PO (13:32)
[2022-12-20 13:41] VITALS: BP 141/81
--- NOTE | 2022-12-20 13:41 | NUR ---
Patient discharged to home in stable condition. Written and verbal after care instructions given. Patient verbalizes understanding of instruction.
== END 2022-12-20 13:41 | disposition home or self-care (01) ==
LOC: ER 12:29
DX: L02.415 Cutaneous abscess of right lower limb (principal); L03.115 Cellulitis of right lower limb; F17.200 Nicotine dependence, unspecified, uncomplicated; Z79.899 Other long term (current) drug therapy
CPT/HCPCS: 99283; 10060; J3490 ×2; A6403; A6407

== ENCOUNTER 2023-01-29 01:49 | Emergency (ER) | payer MEDICAID ==
[~2023-01-29] VITALS: Ht 154.9 cm; Wt 56.2 kg
[~2023-01-29 01:49] MED LIST changes: +IBUP-1955 PO; +SULF1TAB47 PO
--- NOTE | 2023-01-29 02:20 | NUR ---
CALLED TO [facility] NO ANSWER
--- NOTE | 2023-01-29 02:45 | NUR ---
CALLED TO TRIAGE NO ASNWER
[2023-01-29 03:02] VITALS: BP 128/77
--- NOTE | 2023-01-29 03:02 | NUR ---
BIBSELF C/O SWELLING TO LEFT EYE FOR THE PAST FEW WEEKS. NO VISUAL DEFICITS. PT A/OX4. TOLERATING R/A WELL WITH NO RESP DISTRESS. SAFETY MEASURES IN PLACE.
[2023-01-29] MEDS ORDERED: IBUPROFEN 600 MG TABLET ONE (03:23)
[2023-01-29] MEDS ORDERED: ERYT3.5O9 EACHEYE (03:23)
[2023-01-29] MEDS ORDERED: CEPHALEXIN MONOHYDRATE 500 MG CAPSULE PO ONE ×2 (03:23→03:30)
[2023-01-29] MEDS ORDERED: CEPH500C2 PO (03:23)
--- NOTE | 2023-01-29 03:25 | NUR ---
Patient discharged to home in stable condition. Written and verbal after care instructions given. Patient verbalizes understanding of instruction.
[2023-01-29] MEDS ORDERED: IBUPROFEN 600 MG TABLET PO ONE (03:30)
== END 2023-01-29 03:28 | disposition home or self-care (01) ==
LOC: ER 01:53
DX: H00.014 Hordeolum externum left upper eyelid (principal); F17.200 Nicotine dependence, unspecified, uncomplicated; Z79.899 Other long term (current) drug therapy; Z59.00 Homelessness unspecified

== ENCOUNTER 2023-09-18 17:43 | Emergency (ER) | payer MEDICAID ==
[~2023-09-18] VITALS: Ht 154.9 cm; Wt 56.7 kg
[2023-09-18] MEDS ORDERED: ERYT3.5O9 EACHEYE ×2 (19:11→20:25)
[2023-09-18 19:13] VITALS: BP 132/75; TEMP 98; O2SAT 97
== END 2023-09-18 19:41 | disposition home or self-care (01) ==
LOC: ER 17:47
DX: H01.00B Unspecified blepharitis left eye, upper and lower eyelids (principal); H10.9 Unspecified conjunctivitis; F20.9 Schizophrenia, unspecified; Z59.00 Homelessness unspecified

== ENCOUNTER 2023-12-08 06:06 | Emergency (ER) | payer MEDICAID, OTHER ==
[~2023-12-08] VITALS: Ht 162.6 cm; Wt 80.7 kg
[2023-12-08 06:29] VITALS: TEMP 98.5
[2023-12-08 06:32] VITALS: BP 147/77; O2SAT 98
[2023-12-08] MEDS ORDERED: AZITHROMYCIN 250 MG TABLET ONE (07:04)
[2023-12-08] MEDS ORDERED: CEFTRIAXONE 500 MG VIAL ONE (07:04)
[2023-12-08] MEDS: CEFTRIAXONE 500 MG VIAL IM ONE (07:11)
[2023-12-08] MEDS: AZITHROMYCIN 250 MG TABLET PO ONE (07:12)
== END 2023-12-08 07:16 | disposition home or self-care (01) ==
LOC: ER 06:26
DX: A64 Unspecified sexually transmitted disease (principal); Z59.00 Homelessness unspecified; Z79.899 Other long term (current) drug therapy
CPT/HCPCS: 99283; 96372; J0696